=== PATIENT | female | born 1985 | race Caucasian/White ===

== ENCOUNTER 2019-10-03 09:47 | Emergency (ER) | payer MEDICAID ==
[~2019-10-03] VITALS: Ht 162.6 cm; Wt 70.0 kg
--- NOTE | 2019-10-03 10:49 | NUR ---
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
--- NOTE | 2019-10-03 11:04 | NUR ---
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
[2019-10-03] MEDS ORDERED: acetaminophen 325mg tablet PO ONE (11:35)
[2019-10-03] MEDS ORDERED: normal saline 1000ML IV soln IVB ONE (11:50)
[2019-10-03 12:42] VITALS: BP 107/79
== END 2019-10-03 12:45 | disposition home or self-care (01) ==
LOC: ER 09:48
DX: O26.892 Other specified pregnancy related conditions, second trimester (principal); R10.2 Pelvic and perineal pain; Z3A.22 22 weeks gestation of pregnancy; Z88.5 Allergy status to narcotic agent
CPT/HCPCS: 76805; 99284; J7030

== ENCOUNTER 2020-04-23 05:31 | Day surgery (SDC) | payer MEDICAID ==
[2020-04-19 12:23] LABS: BASOPHILS # (AUTO) 0.1 X10'3 (0-0.2); BASOPHILS % (AUTO) 0.8 % (0-1); EOSINOPHILS # (AUTO) 0.7 X10'3 (0-0.9); EOSINOPHILS % (AUTO) 9.6 % (0-6); LYMPHOCYTES # (AUTO) 2.2 X10'3 (1.1-4.8); LYMPHOCYTES % (AUTO) 29.5 % (21-51); MEAN CORPUSCULAR HGB CONC 33.3 g/dL (33.0-36.5); MEAN CORPUSCULAR VOLUME 87.2 FL (78-98); MEAN PLATELET VOLUME 8.6 FL (7.4-10.4); MONOCYTES # (AUTO) 0.5 X10'3 (0-0.9); MONOCYTES % (AUTO) 7.3 % (2-12); NEUTROPHILS # (AUTO) 3.9 X10'3 (1.8-7.7); NEUTROPHILS % (AUTO) 52.8 % (42-75); PRE OP HEMATOCRIT 38.1 % (35.0-45.0); PRE OP HEMOGLOBIN 12.7 g/dL (12.0-16.0); PRE OP PLATELET COUNT 272 X10'3 (140-440); RED BLOOD COUNT 4.37 X10'6 (4.20-5.60); RED CELL DISTRIBUTION WIDTH 16.1 % (11.5-14.5)
[2020-04-19 12:32] LABS: ALBUMIN/GLOBULIN RATIO 1.1 (1.1-1.5); ALKALINE PHOSPHATASE 98 IU/L (46-116); BLOOD UREA NITROGEN 14 MG/DL (7-18); BUN/CREATININE RATIO 19.4 (6.6-38.0); CHLORIDE 105 MMOL/L (99-107); CREATININE 0.72 MG/DL (0.40-0.90); PRE OP ALT 44 U/L (30-65); PRE OP ANION GAP 11 (8-16); PRE OP AST 30 U/L (10-37); PRE OP BILIRUB, TOTAL 0.3 MG/DL (0.0-1.0); PRE OP GLUCOSE 86 MG/DL (70-104); PRE OP SODIUM 140 MMOL/L (135-145); TOTAL CARBON DIOXIDE 24.2 MMOL/L (24-32); TOTAL PROTEIN 7.8 G/DL (6.4-8.2); eGFR > 90 ML/MIN
[2020-04-19 13:38] LABS: HCG SERUM QL NEGATIVE
[~2020-04-23] VITALS: Ht 162.6 cm; Wt 66.2 kg
[2020-04-23] VITALS (7 sets, daily range): BP systolic 108–116; BP diastolic 72–79
[~2020-04-23 05:31] MED LIST: SERT-153 PO; clindamycin-Cleocin 900mg/D5W 50 ML IV ONE; famotidine 20mg tablet PO ONE; ringers solution, lacted 1,000 ML IV SCH
[2020-04-23] MEDS ORDERED: LIDOcaine 1% (10mg/ml) 2ml vial ONE (05:58)
[2020-04-23] MEDS ORDERED: fentaNYL/PF 50MCG/1 ML 2ML syringe ONE (07:09)
[2020-04-23] MEDS ORDERED: LIDOcaine 2% 5ml jelly ONE (07:23)
[2020-04-23] MEDS ORDERED: LIDOcaine 2% (20mg/ml) 5ml vial ONE (07:23)
[2020-04-23] MEDS ORDERED: dexamethasone sod phosphate 4mg/ml inj. ONE (07:23)
[2020-04-23] MEDS ORDERED: propofol inj 20 ML IV ONE (07:23)
[2020-04-23] MEDS ORDERED: midazolam 2 mg/2 ml injection ONE ×2 (07:23→08:00)
[2020-04-23] MEDS ORDERED: rocuronium 10mg/ml inj IV ONE (07:23)
[2020-04-23] MEDS ORDERED: ondansetron/PF 4mg/2ml inj ONE (07:23)
[2020-04-23] MEDS ORDERED: ondansetron/PF 4mg/2ml inj IV PRN (07:30)
[2020-04-23] MEDS ORDERED: fentaNYL/PF 50MCG/1 ML 2ML syringe IV PRN ×2 (07:30)
[2020-04-23] MEDS ORDERED: ringers solution, lacted 1,000 ML IV SCH (07:30)
[2020-04-23] MEDS ORDERED: meperidine/PF 25mg/ml syringe IV PRN (07:30)
[2020-04-23] MEDS ORDERED: proCHLORperazine 10 MG/2 ml inj IV PRN (07:30)
[2020-04-23] MEDS ORDERED: acetaminophen 1,000mg/100ml IV 100 ML IV PRN (07:30)
[2020-04-23] MEDS ORDERED: HYDROmorphone/PF 0.2 MG/ML SYRINGE IV PRN ×2 (07:30)
--- NOTE | 2020-04-23 08:10 | NUR ---
fridau Addendum: 04/23/20 at 0828 by Alex Key RN, RN Amended: Links added.
--- NOTE | 2020-04-23 08:11 | NUR ---
Received from OR via [facility] , accompanied by Anesthesiologist and report given by Anesthesiolgist. PATIENT WOKE UP ON THE WAY TO PACU POST SURGERY ON [facility],RAJ, ANESTHESIOLOGIST ADMINISTERED MEDICATIONS, PATIENT SLEEPING AFTER MEDS ADMINISTERED, PIV ON RIGHT HAND 20G LR RUNNING AT 100ML/HR, ONE BANDAID ON AMBILICAL REGION, DRESSSING CDI, ON O2 10L WITH MASK, VSS. Addendum: 04/23/20 at 0824 by Alex Key RN, RN Amended: Links added.
--- NOTE | 2020-04-23 09:28 | NUR ---
PATIENT VERBALIZED UNDERSTANDING, OPPORTUNITY TO ASK QUESTIONS GIVEN AND PATIENT COMFORTABLE WITH DC. IV TAKEN OUT WITHOUT COMPLICATION. PATIENT HAS MET ALL DC CRITERIA FOR DC HOME. I HAVE REVIEWED D/C INSTRUCTIONS WITH PATIENT. TAKEN OUT VIA WHEELCHAIR WHERE PATIENT WAS TAKEN HOME WITH ALL BELONGINGS. FAMILY GAVE PATIENT TRANSPORT HOME. PAIN IS 5/10 AT DISCHARGE ON WHEELCHAIR, PAIN IS TOLERABLE. Addendum: 04/23/20 at 0939 by Alex Key RN, RN Amended: Links added.
[2020-04-23] MEDS ORDERED: BUPIVAcaine 0.25% w/Epi /PF 30ml vial IJ ONE (14:54)
== END 2020-04-23 09:28 | disposition home or self-care (01) ==
LOC: PAS 05:31
PROVIDERS: ATTEND Obstetrics & Gynecology
DX: Z30.2 Encounter for sterilization (principal); N83.292 Other ovarian cyst, left side; Z98.890 Other specified postprocedural states; Z87.891 Personal history of nicotine dependence; F41.8 Other specified anxiety disorders; Z88.6 Allergy status to analgesic agent; Z88.0 Allergy status to penicillin; Z79.899 Other long term (current) drug therapy; Z20.822 Contact with and (suspected) exposure to COVID-19
CPT/HCPCS: 36415; 58670; 80053; 82948; 84703; 85025; 87635; A6258; J0131; J1100; J2001; J2250; J2405; J2704; J3010; A4618; A6402; J7120

== ENCOUNTER 2022-02-07 22:10 | Emergency (ER) | payer MEDICAID ==
[~2022-02-07] VITALS: Ht 162.6 cm; Wt 64.5 kg
[~2022-02-07 22:10] MED LIST changes: -clindamycin-Cleocin 900mg/D5W 50 ML IV ONE; -famotidine 20mg tablet PO ONE; -ringers solution, lacted 1,000 ML IV SCH
[2022-02-07] MEDS ORDERED: LIDOcaine 1% W/epiNEPHrine 1:100,000 20ml vial SQ ONE (22:50)
[2022-02-07] MEDS ORDERED: LIDOcaine 1% w/EPI 1:100,000 30ml vial (MDV) SQ ONE (22:55)
[2022-02-07] MEDS ORDERED: tetanus & diphtheria toxoid (Td) vaccine 0.5ml IMVAC ONE (23:35)
[2022-02-07] MEDS ORDERED: TETanus/Pertussis (Acell)/Diphther VAC/PF (Tdap-Adult) 0.5ml syringe IMVAC ONE (23:40)
[2022-02-07 23:48] VITALS: BP 120/78
== END 2022-02-07 23:51 | disposition home or self-care (01) ==
LOC: ER 22:11
DX: S61.216A Laceration without foreign body of right little finger without damage to nail, initial encounter (principal); Z88.0 Allergy status to penicillin; Z88.5 Allergy status to narcotic agent; Z79.899 Other long term (current) drug therapy; W45.8XXA Other foreign body or object entering through skin, initial encounter; Y93.89 Activity, other specified; Y92.89 Other specified places as the place of occurrence of the external cause; Y99.8 Other external cause status
CPT/HCPCS: 12001; 90471; 90715; 99283; A6449

== ENCOUNTER 2024-12-16 15:31 | Emergency (ER) | payer MEDICAID ==
[~2024-12-16] VITALS: Ht 162.6 cm; Wt 72.5 kg
[2024-12-16 15:48] VITALS: BP 116/81; PULSE 67; RESP 18; O2SAT 99
[2024-12-16 17:12] VITALS: TEMP 97.6
== END 2024-12-16 17:13 | disposition left against medical advice (07) ==
LOC: ER 15:32
DX: Z76.0 Encounter for issue of repeat prescription (principal); F41.9 Anxiety disorder, unspecified; Z88.0 Allergy status to penicillin; Z88.5 Allergy status to narcotic agent; Z53.21 Procedure and treatment not carried out due to patient leaving prior to being seen by health care provider
CPT/HCPCS: 99281